=== PATIENT | male | born 1935 | race Caucasian/White ===

== ENCOUNTER 2016-02-25 07:30 | Inpatient (IN) | payer OTHER, BC ==
[~2016-02-25] VITALS: Ht 182.9 cm; Wt 111.5 kg
[~2016-02-25 07:30] MED LIST: ATORVASTATIN CA20 MG PO; CALTRATE 600 +1 EAC1 PO; ENALAPRIL MALEA20 MG PO; HYDROCHLOROTHIA25 MG PO; JANUVIA100 MG PO; LO-DOSE ASPIRIN81 M2 PO; LUPRON DEPOT30 MG IM; METFORMIN HCL500 MG PO; METOPROLOL TART25 MG PO; METOPROLOL TART50 MG PO; PLAVIX75 MG PO; TERBINAFINE HC250 MG PO
[2016-02-25] MEDS ORDERED: VICODIN 5-3001 EACH PO (09:07)
[2016-02-25 09:11] VITALS: BP 129/77
[2016-02-25 09:44] LABS: POINT-OF-CARE METER ID UU14174212
[2016-02-25 18:21] VITALS: BP 157/74
[2016-02-25 19:29] VITALS: BP 139/79
[2016-02-25 23:36] VITALS: BP 143/79
[2016-02-26 03:41] VITALS: BP 140/82
[2016-02-26 07:45] VITALS: BP 147/76
[2016-02-26 11:12] VITALS: BP 135/67
== END 2016-02-26 13:31 | disposition home or self-care (01) | DRG 520 ==
LOC: SDC 07:30 → 2EAST 14:13
PROVIDERS: Neurological Surgery
DX: M51.26 Other intervertebral disc displacement, lumbar region (principal); L89.312 Pressure ulcer of right buttock, stage 2; E11.9 Type 2 diabetes mellitus without complications; I10 Essential (primary) hypertension; E78.5 Hyperlipidemia, unspecified; E78.00 Pure hypercholesterolemia, unspecified; I25.2 Old myocardial infarction; M81.0 Age-related osteoporosis without current pathological fracture; M19.90 Unspecified osteoarthritis, unspecified site; E66.9 Obesity, unspecified; Z68.33 Body mass index [BMI] 33.0-33.9, adult; Z85.46 Personal history of malignant neoplasm of prostate; Z85.118 Personal history of other malignant neoplasm of bronchus and lung; Z85.828 Personal history of other malignant neoplasm of skin
CPT/HCPCS: 72020; 76000; 82948; J0131; J0330; J1040; J1100; J2405; J2710; J3010; J3480